=== PATIENT | female | born 1980 | race Two or more races ===

== ENCOUNTER 2017-08-09 13:09 | Emergency (ER) | payer MEDICAID ==
[~2017-08-09] VITALS: Ht 165.1 cm; Wt 68.0 kg
[2017-08-09] MEDS ORDERED: ASPIRIN 325 MG TABLET PO ONE (13:30)
--- NOTE | 2017-08-09 13:30 | NUR ---
PT TOSEEN AND EVALUATED BY ED PROVIDER. ED BED 10. L SIDED CHEST PAIN NON RAIDIATING X 2 DAYS, RESOLVED THIS MORNING, HEADACHE. A/A/O. AMBULATORY. CHANGED TO GOWN. SIDE RAISL UP. HOB ELEVATED. CONNECTED TO MONITOR.
--- NOTE | 2017-08-09 13:38 | NUR ---
EKG AT BEDSIDE. R AC G 20 IV STARTED, BLOOD TESTS DRAWN AND SEND TO LAB.
[2017-08-09] MEDS ORDERED: ASPIRIN 325 MG TABLET ONE (13:39)
[2017-08-09 13:40] LABS: BASOPHILS % (AUTO) 0.3 % (0.0-2.0); EOSINOPHILS % (AUTO) 0.7 % (0.0-6.0); HEMATOCRIT 36 % (33-45); HEMOGLOBIN 12.1 g/dL (11.5-14.8); LYMPHOCYTES # (AUTO) 2.4 /CMM (0.8-4.8); LYMPHOCYTES % (AUTO) 29.1 % (20.0-44.0); MEAN CORPUSCULAR HGB CONC 34 g/dl (31.0-36.0); MEAN CORPUSCULAR VOLUME 78 fL (82-100); MONOCYTES # (AUTO) 0.5 /CMM (0.1-1.30); NEUTROPHILS # (AUTO) 5.2 /CMM (1.8-8.9); NEUTROPHILS % (AUTO) 63.9 % (43.0-81.0); PLATELET COUNT (AUTO) 503 /CMM (150-450); RDW COEFFICIENT OF VARIATION 14.2 (11.5-15.0); RED BLOOD CELL COUNT(AUTO) 4.56 MIL/uL (4.0-5.2); WHITE BLOOD COUNT (AUTO) 8.2 K/uL (4.3-11.0)
[2017-08-09 13:50] LABS: CARBON DIOXIDE 29 mmol/L (21-32); CHLORIDE 102 mmol/L (98-107); CREATININE 0.9 mg/dL (0.6-1.3); GLUCOSE 133 mg/dL (74-106); POTASSIUM 3.5 mmol/L (3.5-5.1); SODIUM SERUM 136 mmol/L (136-145); UREA NITROGEN, BLOOD 16 mg/dL (7-18)
[2017-08-09 13:56] LABS: ALBUMIN 3.8 g/dL (3.4-5.0); BILIRUBIN,TOTAL 0.3 mg/dL (0.2-1.0); TOTAL PROTEIN, SERUM 8.3 g/dL (6.4-8.2)
[2017-08-09 13:58] LABS: INR 0.89 (0.85-1.15); TROPONIN I < 0.017 ng/mL (0.00-0.056)
[2017-08-09] MEDS ORDERED: METOCLOPRAMIDE HCL 10 MG/2 ML VIAL ONE (14:16)
[2017-08-09] MEDS ORDERED: KETOROLAC TROMETHAMINE INJ 30 MG/ML VIAL ONE (14:16)
[2017-08-09] MEDS ORDERED: diphenhydrAMINE HCL 50 MG/ML VIAL ONE (14:16)
[2017-08-09] MEDS ORDERED: KETOROLAC TROMETHAMINE INJ 30 MG/ML VIAL IV ONE (14:30)
[2017-08-09] MEDS ORDERED: IV NS 0.9% 250 ML BAG IV ONE (14:30)
[2017-08-09] MEDS ORDERED: diphenhydrAMINE HCL 50 MG/ML VIAL IV ONE (14:30)
[2017-08-09] MEDS ORDERED: METOCLOPRAMIDE HCL 10 MG/2 ML VIAL IV ONE (14:30)
--- NOTE | 2017-08-09 14:55 | NUR ---
IV removed. Catheter intact and site benign. Pressure and 4x4 applied to site. No bleeding noted.Patient discharged to home in stable condition. Written and verbal after care instructions given. Patient verbalizes understanding of instruction.
[2017-08-09 14:57] VITALS: BP 129/67
== END 2017-08-09 14:58 | disposition home or self-care (01) ==
LOC: ER 13:14
DX: R07.89 Other chest pain (principal); R51 Headache; E11.9 Type 2 diabetes mellitus without complications; K21.9 Gastro-esophageal reflux disease without esophagitis; E03.9 Hypothyroidism, unspecified; E78.00 Pure hypercholesterolemia, unspecified
CPT/HCPCS: 36415; 71045-TC; 80048-TC; 80076-TC; 84484-TC; 85025-TC; 85730-TC; A4606; J1200; J1885; J2765; J7050; Z7610

== ENCOUNTER 2017-09-01 11:06 | Inpatient (IN) | payer MEDICAID ==
[~2017-09-01] VITALS: Ht 154.9 cm; Wt 72.6 kg
--- NOTE | 2017-09-01 11:27 | NUR ---
PT C/O LEFT SIDED CHEST PAIN X YESTERDAY RADIATING TO LEFT ARM. NAD NOTED. VSS. DENIES TRAUMA. SEEN BY MD FOR EVAL. SAFETY AND COMFORT MEASURES PROVIDED. WILL MONITOR.
[2017-09-01 11:38] LABS: BASOPHILS # (AUTO) 0.1 /CMM (0.0-0.2); BASOPHILS % (AUTO) 0.6 % (0.0-2.0); EOSINOPHILS % (AUTO) 0.8 % (0.0-6.0); HEMATOCRIT 34 % (33-45); HEMOGLOBIN 11.8 g/dL (11.5-14.8); LYMPHOCYTES # (AUTO) 2.5 /CMM (0.8-4.8); LYMPHOCYTES % (AUTO) 27.7 % (20.0-44.0); MEAN CORPUSCULAR HGB CONC 34 g/dl (31.0-36.0); MEAN CORPUSCULAR VOLUME 77 fL (82-100); MONOCYTES # (AUTO) 0.7 /CMM (0.1-1.30); MONOCYTES % (AUTO) 7.3 % (2.0-12.0); NEUTROPHILS # (AUTO) 5.6 /CMM (1.8-8.9); NEUTROPHILS % (AUTO) 63.6 % (43.0-81.0); PLATELET COUNT (AUTO) 427 /CMM (150-450); RDW COEFFICIENT OF VARIATION 14.2 (11.5-15.0); RED BLOOD CELL COUNT(AUTO) 4.43 MIL/uL (4.0-5.2)
[2017-09-01] MEDS ORDERED: METF-442 PO (11:47)
[2017-09-01] MEDS ORDERED: FENO134C PO (11:47)
[2017-09-01] MEDS ORDERED: LEVO50TA8 PO (11:47)
[2017-09-01 11:48] LABS: CALCIUM, SERUM 8.9 mg/dL (8.5-10.1); CARBON DIOXIDE 26 mmol/L (21-32); CHLORIDE 104 mmol/L (98-107); CREATININE 0.8 mg/dL (0.6-1.3); GLUCOSE 130 mg/dL (74-106); POTASSIUM 3.4 mmol/L (3.5-5.1); SODIUM SERUM 137 mmol/L (136-145); UREA NITROGEN, BLOOD 15 mg/dL (7-18)
[2017-09-01 11:52] LABS: INR 0.91 (0.85-1.15)
[2017-09-01 11:57] LABS: TROPONIN I < 0.017 ng/mL (0.00-0.056)
[2017-09-01] MEDS ORDERED: INSULIN REGULAR, HUMAN 100 UNIT/ML 3 ML VIAL SQ PRN (13:00)
[2017-09-01] MEDS ORDERED: MAGNESIUM HYDROXIDE 30 ML UDC PO PRN (13:00)
[2017-09-01] MEDS ORDERED: DEXTROSE 50%-WATER 50 ML DISP.SYRIN IV PRN (13:00)
[2017-09-01] MEDS ORDERED: NITROGLYCERIN PACKET 1 GM PACKET TOP SCH (13:00)
[2017-09-01] MEDS ORDERED: ONDANSETRON HCL/PF 4 MG/2 ML VIAL IVP PRN (13:00)
[2017-09-01] MEDS ORDERED: MAG HYDROX/AL HYDROX/SIMETH 30 ML UDC PO PRN (13:00)
[2017-09-01] MEDS ORDERED: Z GUARD REMEDY 2 OZ OINT TP PRN (13:00)
[2017-09-01] MEDS ORDERED: *INSULIN REGULAR(HUMULIN R)HUM 100 UNIT/ML VIAL SQ PRN (13:00)
[2017-09-01] MEDS ORDERED: ENOXAPARIN SODIUM 40 MG/0.4 ML DISP.SYRIN SQ SCH (13:00)
[2017-09-01] MEDS ORDERED: ZOLPIDEM TARTRATE 5 MG TABLET PO PRN (13:00)
[2017-09-01] MEDS ORDERED: ACETAMINOPHEN 325 MG TABLET PO PRN (13:00)
[2017-09-01] MEDS ORDERED: MORPHINE SULFATE INJ 2 MG/ML DISP.SYRIN IV PRN (13:00)
[2017-09-01] MEDS ORDERED: HYDROCODONE/APAP 5/325MG 1 EACH TABLET PO PRN (13:00)
--- NOTE | 2017-09-01 13:00 | NUR ---
MS NEUROLOGICAL SURGERY TEACHER NOTE RECEIVED REPORT FROM MELANY FINE RN. PATIENT IS ALERT AND ORIENTED x4. PATIENT CAME FROM HOME DUE TO SHARP CHEST PAIN RADIATING TO LEFT ARM. PATIENT STATES 2/10 CHEST PAIN AT THIS TIME. HISTORY OF HTN, DM TYPE 2, GERD, HLD, AND HYPOTHYROIDISM. MED RECON DONE BY ADMITTING MD. NO SKIN ISSUES AT THIS TIME, SKIN INTACT. ALL BELONGINGS ACCOUNTED FOR AND WITH PATIENT AT BEDSIDE. ABLE TO COMMUNICATE NEEDS. KYRGYZ SPEAKING. IV ON LEFT AC 20G INTACT AND PATENT, FLUSHES WELL. ALL MD ORDERS NOTED AND CARRIED OUT. WILL CONTINUE TO MONITOR FOR CHEST PAIN AND CONTINUITY OF CARE. Addendum: 09/01/[address]ZMAN RN CHEMICAL LAB SUPERVISORNEUROLOGICAL SURGERY TEACHER NOTE TELE MONITOR-SR 70S
[2017-09-01] MEDS ORDERED: ATORVASTATIN 10 MG TABLET PO SCH (14:30)
[2017-09-01 14:40] VITALS: BP 123/80
--- NOTE | 2017-09-01 14:44 | NUR ---
MS AYERS NOTE RECEIVED MD ORDER FROM TO REPLACE POTASSIUM WITH 40 MEQ PO x1. ORDERS NOTED AND CARRIED OUT. Addendum: 09/01/[address]ZMAN RN JARROD ADAMES
[2017-09-01] MEDS: ASPIRIN 81 MG TAB.CHEW PO SCH (14:58)
[2017-09-01] MEDS: Fenofibrate 48 MG TABLET PO SCH (14:58)
[2017-09-01] MEDS ORDERED: POTASSIUM CHLORIDE 20 MEQ TAB.PRT.SR PO ONE (15:00)
[2017-09-01] MEDS: CARVEDILOL 6.25 MG TABLET PO SCH ×2 (15:00→21:00)
[2017-09-01] MEDS: LOSARTAN POTASSIUM 50 MG TABLET PO SCH (15:01)
--- NOTE | 2017-09-01 15:15 | NUR ---
EMT DISPATCHER NOTE PATIENT SCHEDULED FOR NUCLEAR MEDICINE MYOCARDIAL STRESS TEST 09/02/17. CONSENTS OBTAINED AND PLACED IN CHART. PATIENT MADE AWARE ABOUT BEING NPO AFTER MIDNIGHT, NO FOOD/WATER/COFFEE/TEA. PATIENT VERBALLY UNDERSTANDS. WILL ENDORSE TO FOUNTAIN SUPERVISOR
[2017-09-01 15:48] LABS: THYROID STIMULATING HORMONE 0.076 uIU/mL (0.358-3.74)
[2017-09-01 16:00] VITALS: BP 110/70
[2017-09-01] MEDS: BLOOD SUGAR DIAGNOSTIC 1 EACH STRIP VI SCH ×2 (17:10→21:30)
--- NOTE | 2017-09-01 18:39 | NUR ---
TREE PRUNER CLOSING NOTE PATIENT IN BED RESTING COMFORTABLY AT THIS TIME. ABLE TO COMMUNICATE NEEDS. CALL LIGHT WITHIN REACH AT ALL TIMES. SAFETY MEASURES IMPLEMENTED. NO PAIN NOTED AT THIS TIME. NO SOB OR DISTRESS NOTED WITH 99% O2 SAT ON ROOM AIR. ON TELE MONITOR- SR 71. CONSENTS OBTAINED FOR NM STRESS TEST 09/02/17 AND PLACED IN CHART. NPO AFTER MIDNIGHT. ALL DUE MEDICATIONS GIVEN ORDERED. ALL NURSING CARE NEEDS ATTENDED TO NEEDED. WILL ENDORSE TO MOBILE SALES ASSISTANT NURSE FOR LINDSAY
--- NOTE | 2017-09-01 19:40 | NUR ---
FACULTY ADMINISTRATOR OPENING NOTES RECEIVED PATIENT AWAKE ,ALERT AND ORIENTED X4 , VERBALLY RESPONSIVE, BREATHING EVEN AND UNLABORED WITH EQUAL RISE AND FALL OF CHEST, C/O HEADACHE 06/07 AT THIS TIME TYLENOL OFFERED AGREED TO TAKE, PRN DOSE GIVEN WILL CONTINUE TO MONITOR, ON MARINE PILOT SR 75.IV SITE TO LEFT AC SL , INTACT AND PATENT, NO REDNESS , NO INFILTRATION PRESENT, FLUIDS OFFERED TOLERATED , ALL NEEDS ATTENDED AT THIS TIME, ORIENTED TO STAFF, CALL LIGHT AND CALL LIGHT KEPT WITHIN REACH, WILL CONTINUE TO MONITOR AT THIS TIME, PATIENT AWARE OF NPO STATUS AT MIDNIGHT FOR AM PROCEDURE.REMAINS COMFORTABLE AT THIS TIME.
[2017-09-01 20:00] VITALS: BP 102/64
--- NOTE | 2017-09-01 21:36 | NUR ---
SUPERVISOR QUALITY CONTROL NOTES BS 125 - PER SLIDING SCALE NO INSULIN NEEDED, NONE GIVEN
[2017-09-02] VITALS: BP 100/65
[2017-09-02 04:00] VITALS: BP 100/64
[2017-09-02 05:00] VITALS: BP 100/64
[2017-09-02 06:33] LABS: BASOPHILS % (AUTO) 0.4 % (0.0-2.0); EOSINOPHILS % (AUTO) 0.7 % (0.0-6.0); HEMATOCRIT 32 % (33-45); HEMOGLOBIN 10.8 g/dL (11.5-14.8); LYMPHOCYTES # (AUTO) 2.1 /CMM (0.8-4.8); MEAN CORPUSCULAR HGB CONC 34 g/dl (31.0-36.0); MEAN CORPUSCULAR VOLUME 78 fL (82-100); MONOCYTES # (AUTO) 0.6 /CMM (0.1-1.30); MONOCYTES % (AUTO) 8.6 % (2.0-12.0); NEUTROPHILS # (AUTO) 3.9 /CMM (1.8-8.9); NEUTROPHILS % (AUTO) 58.3 % (43.0-81.0); PLATELET COUNT (AUTO) 406 /CMM (150-450); RDW COEFFICIENT OF VARIATION 15.5 (11.5-15.0); RED BLOOD CELL COUNT(AUTO) 4.12 MIL/uL (4.0-5.2); WHITE BLOOD COUNT (AUTO) 6.6 K/uL (4.3-11.0)
[2017-09-02] MEDS: BLOOD SUGAR DIAGNOSTIC 1 EACH STRIP VI SCH ×2 (06:41→12:30)
--- NOTE | 2017-09-02 07:17 | NUR ---
SUPPLY PERSON CLOSING NOTES PATIENT AWAKE ,ALERT AND ORIENTED X4 , VERBALLY RESPONSIVE, BREATHING EVEN AND UNLABORED WITH EQUAL RISE AND FALL OF CHEST, ON GUTTER HANGER SR 68.IV SITE TO LEFT AC SL , INTACT AND PATENT, NO REDNESS , NO INFILTRATION PRESENT, ALL NEEDS ATTENDED AT THIS TIME, STAFF, CALL CALL LIGHT KEPT WITHIN REACH, WILL CONTINUE TO MONITOR AT THIS TIME, PATIENT AWARE OF NPO STATUS AT MIDNIGHT FOR AM PROCEDURE.REMAINS COMFORTABLE AT THIS TIME.BLOOD SUGAR OF 128 , NO INSULIN PER SLIDING SCALE NEEDED AT THIS TIME. WILL ENDORSE TO NEXT SHIFT PATIENT REMAINS COMFORTABLE.
[2017-09-02 07:19] LABS: CALCIUM, SERUM 8.8 mg/dL (8.5-10.1); CREATININE 0.8 mg/dL (0.6-1.3); MAGNESIUM 1.9 mg/dL (1.8-2.4); PHOSPHORUS 4.1 mg/dL (2.5-4.9); POTASSIUM 3.8 mmol/L (3.5-5.1)
[2017-09-02] MEDS ORDERED: LEVOTHYROXINE SODIUM 50 MCG TABLET PO SCH (07:30)
[2017-09-02] MEDS ORDERED: PANTOPRAZOLE 40 MG TABLET.DR PO SCH (07:30)
[2017-09-02 08:00] VITALS: BP 113/68
[2017-09-02] MEDS ORDERED: REGADENOSON 0.4 MG/5 ML DISP.SYRIN IVP ONE (08:00)
--- NOTE | 2017-09-02 08:00 | NUR ---
MS RN RECEIVED PATIENT,AWAKE,ALERT,ORIENTED X4,NOT IN ANY FORM OF DISTRESS, RESPIRATIONS EVEN AND UNLABORED,NO SOB NOTED, LUNGS ARE CLEAR,ABDOMEN SOFT,POSITIVE BOWEL SOUNDS,DENIES PAIN AT THIS TIME, ALL NEEDS ATTENDED.
[2017-09-02] MEDS ORDERED: ENOXAPARIN SODIUM 40 MG/0.4 ML DISP.SYRIN SQ SCH (09:00)
--- NOTE | 2017-09-02 09:30 | NUR ---
RN NPO AT THIS TIME, PATIENT FOR STRESS TEST TODAY.
[2017-09-02] MEDS: LOSARTAN POTASSIUM 50 MG TABLET PO SCH (10:01)
[2017-09-02] MEDS: ASPIRIN 81 MG TAB.CHEW PO SCH (10:01)
[2017-09-02] MEDS: Fenofibrate 48 MG TABLET PO SCH (10:01)
[2017-09-02 10:02] VITALS: BP 115/68
[2017-09-02] MEDS: CARVEDILOL 6.25 MG TABLET PO SCH (10:02)
--- NOTE | 2017-09-02 12:00 | NUR ---
MS ARMEN BS -[id number] - NO COVERAGE GIVEN, PT NPO.
[2017-09-02] MEDS ORDERED: MORPHINE SULFATE INJ 4 MG/ML DISP.SYRIN IV PRN (13:00)
--- NOTE | 2017-09-02 13:50 | NUR ---
MS RN STRESS TEST DONE W/ NEGATIVE RESULTS,WILL MONITOR PATIENT.
--- NOTE | 2017-09-02 15:30 | NUR ---
MS RN PATIENT WILL BE GOING HOME TODAY, VIA TAXI.
--- NOTE | 2017-09-02 16:52 | NUR ---
MS FAST FOOD RESTAURANT MANAGER INSTRUCTION GIVEN AND UNDERSTOOD TO HAVE A FOLLOW UP W/ PRIMARY IN ONE WEKK. WENT HOME VIA TAXI.ALL NEEDS ATTENDED.
== END 2017-09-02 16:57 | disposition home or self-care (01) | DRG 203 ==
LOC: ER 11:09 → TELE 12:27 → MED 09-02 09:35
PROVIDERS: ADMIT Internal Medicine; ATTEND Internal Medicine
DX: M94.0 Chondrocostal junction syndrome [Tietze] (principal); I10 Essential (primary) hypertension; E03.9 Hypothyroidism, unspecified; E11.9 Type 2 diabetes mellitus without complications; D50.9 Iron deficiency anemia, unspecified; E78.5 Hyperlipidemia, unspecified; K21.9 Gastro-esophageal reflux disease without esophagitis; E66.9 Obesity, unspecified; Z68.30 Body mass index [BMI] 30.0-30.9, adult; Z79.84 Long term (current) use of oral hypoglycemic drugs
CPT/HCPCS: 36415; 71045-TC; 80048-TC; 80061-TC; 82306; 82728-TC; 82962-TC; 83540-TC; 83735-TC; 84100-TC; 84439-TC; 84443-TC; 84484-TC; 84703-TC; 85025-TC; 85730-TC; 87081-TC; 93307-TC; A4606; A6253; A9502; J1650; J1815; J2785; J7040; Z7610

== ENCOUNTER 2018-01-13 13:07 | Emergency (ER) | payer MEDICAID ==
[~2018-01-13] VITALS: Ht 165.1 cm; Wt 90.0 kg
[~2018-01-13 13:07] MED LIST: FENO134C PO; LEVO50TA8 PO; METF-442 PO
[2018-01-13 14:30] LABS: BASOPHILS % (AUTO) 0.4 % (0.0-2.0); EOSINOPHILS % (AUTO) 1.4 % (0.0-6.0); HEMATOCRIT 38 % (33-45); HEMOGLOBIN 12.4 g/dL (11.5-14.8); LYMPHOCYTES # (AUTO) 2.5 /CMM (0.8-4.8); LYMPHOCYTES % (AUTO) 31.5 % (20.0-44.0); MEAN CORPUSCULAR HGB CONC 33 g/dl (31.0-36.0); MEAN CORPUSCULAR VOLUME 79 fL (82-100); MONOCYTES # (AUTO) 0.7 /CMM (0.1-1.30); MONOCYTES % (AUTO) 9.1 % (2.0-12.0); NEUTROPHILS # (AUTO) 4.7 /CMM (1.8-8.9); NEUTROPHILS % (AUTO) 57.6 % (43.0-81.0); PLATELET COUNT (AUTO) 458 /CMM (150-450); RED BLOOD CELL COUNT(AUTO) 4.76 MIL/uL (4.0-5.2)
[2018-01-13 14:39] LABS: CALCIUM, SERUM 8.9 mg/dL (8.5-10.1); CREATININE 0.8 mg/dL (0.6-1.3); POTASSIUM 3.4 mmol/L (3.5-5.1)
--- NOTE | 2018-01-13 15:45 | NUR ---
PT. VERBALIZED UNDERSTANDING OF AFTERCARE INSTRUCTIONS.Patient discharged to home in stable condition. Written and verbal after care instructions given. Patient verbalizes understanding of instruction.
[2018-01-13 15:46] VITALS: BP 151/81
== END 2018-01-13 15:47 | disposition home or self-care (01) ==
LOC: ER 13:11
DX: M54.41 Lumbago with sciatica, right side (principal); M54.6 Pain in thoracic spine; K21.9 Gastro-esophageal reflux disease without esophagitis; I10 Essential (primary) hypertension; E11.9 Type 2 diabetes mellitus without complications; E03.9 Hypothyroidism, unspecified; E78.00 Pure hypercholesterolemia, unspecified
CPT/HCPCS: 36415; 71045; 80048; 85025; 93005; 99285; A4606; Z7610

== ENCOUNTER 2018-04-27 12:59 | Emergency (ER) | payer MEDICAID ==
[~2018-04-27] VITALS: Ht 157.5 cm; Wt 86.2 kg
--- NOTE | 2018-04-27 13:10 | NUR ---
LUQ abd pain x 2 weeks with nausea, denies vomiting . alert and oriented x 4, verbally responsive nad able to make needs known. on room air, breathing evenly and unlabored. connected to the monitor and pulse ox, kept comfortable, will continue to monitor accordingly.
--- NOTE | 2018-04-27 13:22 | NUR ---
URINE COLLECTED AND BLOOD DRAWNED AND SENT TO LAB.
[2018-04-27] MEDS ORDERED: ONDANSETRON HCL/PF 4 MG/2 ML VIAL IVP ONE (13:30)
[2018-04-27] MEDS ORDERED: HYDROMORPHONE INJ 2 MG/ML DISP.SYRIN IV ONE (13:30)
[2018-04-27] MEDS ORDERED: IV NS 0.9% 1,000 ML BAG IV ONE (13:30)
[2018-04-27] MEDS ORDERED: ONDANSETRON HCL/PF 4 MG/2 ML VIAL ONE (13:32)
[2018-04-27] MEDS ORDERED: HYDROMORPHONE INJ 0.5 MG/0.5 ML SYRINGE ONE (13:32)
[2018-04-27 13:33] LABS: BASOPHILS # (AUTO) 0.1 /CMM (0.0-0.2); BASOPHILS % (AUTO) 0.8 % (0.0-2.0); EOSINOPHILS % (AUTO) 1.2 % (0.0-6.0); HEMATOCRIT 36 % (33-45); HEMOGLOBIN 11.8 g/dL (11.5-14.8); LYMPHOCYTES % (AUTO) 32.6 % (20.0-44.0); MEAN CORPUSCULAR HGB CONC 33 g/dl (31.0-36.0); MEAN CORPUSCULAR VOLUME 83 fL (82-100); MONOCYTES # (AUTO) 0.6 /CMM (0.1-1.30); MONOCYTES % (AUTO) 9.5 % (2.0-12.0); NEUTROPHILS # (AUTO) 3.5 /CMM (1.8-8.9); NEUTROPHILS % (AUTO) 55.9 % (43.0-81.0); PLATELET COUNT (AUTO) 382 /CMM (150-450); WHITE BLOOD COUNT (AUTO) 6.2 K/uL (4.3-11.0)
[2018-04-27 13:34] LABS: APPEARANCE,URINE Slightly Cloudy (CLEAR); BILIRUBIN,URINE Negative (NEGATIVE); BLOOD, URINE Negative Ery/uL (NEGATIVE); COLOR,URINE Dark Yellow (YELLOW); KETONES,URINE Trace (NEGATIVE); LEUKOCYTE ESTERASE ,URINE Small (NEGATIVE); NITRITE, URINE Negative (NEGATIVE); PH,URINE 5.5 (5.0-8.0); PROTEIN,URINE Negative (NEGATIVE); UGLUCOSE Negative (NEGATIVE); UROBILINOGEN,URINE 0.2 EU/dL (0.2)
[2018-04-27 13:38] LABS: BACTERIA,URINE Few /HPF (None Seen); RBC,URINE 0-2 /HPF (0-2); SQUAMOUS EPITHELIAL CELL,UR Many /HPF (None Seen)
[2018-04-27 13:52] LABS: CREATININE 0.8 mg/dL (0.6-1.3); POTASSIUM 3.7 mmol/L (3.5-5.1)
[2018-04-27 13:57] LABS: ALBUMIN 3.5 g/dL (3.4-5.0); BILIRUBIN,DIRECT 0.1 mg/dL (0.0-0.2); BILIRUBIN,TOTAL 0.3 mg/dL (0.2-1.0); TOTAL PROTEIN, SERUM 8.5 g/dL (6.4-8.2)
[2018-04-27 15:41] VITALS: BP 121/88
--- NOTE | 2018-04-27 15:41 | NUR ---
Patient discharged to home in stable condition. Written and verbal after care instructions given. Patient verbalizes understanding of instruction.IV removed. Catheter intact and site benign. Pressure and 4x4 applied to site. No bleeding noted.
== END 2018-04-27 15:41 | disposition home or self-care (01) ==
LOC: ER 13:03
DX: N39.0 Urinary tract infection, site not specified (principal); R74.0 Nonspecific elevation of levels of transaminase and lactic acid dehydrogenase [LDH]; R16.0 Hepatomegaly, not elsewhere classified; E03.9 Hypothyroidism, unspecified; E11.9 Type 2 diabetes mellitus without complications; I10 Essential (primary) hypertension; K21.0 Gastro-esophageal reflux disease with esophagitis; E78.00 Pure hypercholesterolemia, unspecified; Z79.4 Long term (current) use of insulin
CPT/HCPCS: 36415; 76705; 80048; 80076; 81001; 83690; 84703; 85025; 96374; 96375; 99284; A4606; J2405; J7030; Z7610; 81000-TC

== ENCOUNTER 2018-05-29 21:13 | Emergency (ER) | payer MEDICAID ==
[~2018-05-29] VITALS: Ht 152.4 cm; Wt 85.3 kg
--- NOTE | 2018-05-29 21:25 | NUR ---
BIB FAMILY FOR ABD PAIN, BACK PAIN; PT AAOX4, PT ON MONITOR, VSS, NAD NOTED, PENDING MD MO
[2018-05-29] MEDS ORDERED: ONDANSETRON HCL/PF 4 MG/2 ML VIAL IVP ONE (22:00)
[2018-05-29] MEDS ORDERED: KETOROLAC TROMETHAMINE INJ 30 MG/ML VIAL IV ONE (22:00)
[2018-05-29] MEDS ORDERED: IV NS 0.9% 1,000 ML BAG IV ONE (22:00)
[2018-05-29] MEDS ORDERED: KETOROLAC TROMETHAMINE 15 MG/ML VIAL ONE (22:16)
[2018-05-29] MEDS ORDERED: ONDANSETRON HCL/PF 4 MG/2 ML VIAL ONE ×2 (22:16→23:16)
[2018-05-29 22:17] LABS: BASOPHILS % (AUTO) 0.5 % (0.0-2.0); EOSINOPHILS % (AUTO) 0.9 % (0.0-6.0); HEMATOCRIT 35 % (33-45); HEMOGLOBIN 11.6 g/dL (11.5-14.8); LYMPHOCYTES # (AUTO) 2.1 /CMM (0.8-4.8); LYMPHOCYTES % (AUTO) 26.7 % (20.0-44.0); MEAN CORPUSCULAR HGB CONC 33 g/dl (31.0-36.0); MEAN CORPUSCULAR VOLUME 81 fL (82-100); MONOCYTES # (AUTO) 0.8 /CMM (0.1-1.30); MONOCYTES % (AUTO) 9.9 % (2.0-12.0); NEUTROPHILS # (AUTO) 4.8 /CMM (1.8-8.9); PLATELET COUNT (AUTO) 355 /CMM (150-450); RED BLOOD CELL COUNT(AUTO) 4.33 MIL/uL (4.0-5.2); WHITE BLOOD COUNT (AUTO) 7.7 K/uL (4.3-11.0)
[2018-05-29 22:17] LABS: APPEARANCE,URINE CLEAR (CLEAR); BILIRUBIN,URINE NEGATIVE (NEGATIVE); BLOOD, URINE NEGATIVE Ery/uL (NEGATIVE); COLOR,URINE YELLOW (YELLOW); KETONES,URINE NEGATIVE (NEGATIVE); LEUKOCYTE ESTERASE ,URINE 2+ (NEGATIVE); NITRITE, URINE NEGATIVE (NEGATIVE); PROTEIN,URINE NEGATIVE (NEGATIVE); UGLUCOSE NEGATIVE (NEGATIVE); UROBILINOGEN,URINE 0.2 EU/dL (0.2)
[2018-05-29 22:27] LABS: BACTERIA,URINE Few /HPF (None Seen); RBC,URINE 0-2 /HPF (0-2); SQUAMOUS EPITHELIAL CELL,UR Moderate /HPF (None Seen)
[2018-05-29 22:30] LABS: CALCIUM, SERUM 9.2 mg/dL (8.5-10.1); CREATININE 0.8 mg/dL (0.6-1.3); POTASSIUM 3.7 mmol/L (3.5-5.1)
[2018-05-29 22:38] LABS: ALBUMIN 3.4 g/dL (3.4-5.0); BILIRUBIN,DIRECT 0.1 mg/dL (0.0-0.2); BILIRUBIN,TOTAL 0.3 mg/dL (0.2-1.0); TOTAL PROTEIN, SERUM 8.3 g/dL (6.4-8.2)
[2018-05-29] MEDS ORDERED: MORPHINE SULFATE INJ 2 MG/ML DISP.SYRIN IV ONE (23:00)
[2018-05-29] MEDS ORDERED: ONDANSETRON HCL/PF 4 MG/2 ML VIAL IV ONE (23:00)
[2018-05-29] MEDS ORDERED: MORPHINE SULFATE INJ 2 MG/ML DISP.SYRIN ONE (23:16)
[2018-05-30 00:25] VITALS: BP 117/72
--- NOTE | 2018-05-30 00:25 | NUR ---
Patient discharged to home in stable condition. Written and verbal after care instructions given. Patient verbalizes understanding of instruction.IV removed. Catheter intact and site benign. Pressure and 4x4 applied to site. No bleeding noted. PT AMBULATED OUT WITH STEADY GAIT NOTED
== END 2018-05-30 00:26 | disposition home or self-care (01) ==
LOC: ER 21:16
DX: R74.0 Nonspecific elevation of levels of transaminase and lactic acid dehydrogenase [LDH] (principal); E11.9 Type 2 diabetes mellitus without complications; I10 Essential (primary) hypertension; K21.9 Gastro-esophageal reflux disease without esophagitis; E03.9 Hypothyroidism, unspecified; E78.00 Pure hypercholesterolemia, unspecified
CPT/HCPCS: 36415; 74176; 76705; 80048; 80074; 80076; 81001; 83690; 84703; 85025; 85730; 87086; 96374; 96375; 96376; 99284; A4606; G0480; J1885; J2270; J2405 ×2; J7030; 81000-TC

== ENCOUNTER 2018-07-21 18:22 | Emergency (ER) | payer MEDICAID ==
[~2018-07-21] VITALS: Ht 162.6 cm; Wt 83.5 kg
--- NOTE | 2018-07-21 18:33 | NUR ---
PT BIB SELF C/O EPIGASTRIC PAIN, DISTENSION W/ NAUSEA X 2 DAYS. PT ALSO ENDORSES BACK PAIN, PT IS AAOX4, NOT IN RESPIRATORY DISTRESS, V/S STABLE, KEPT RESTED AND COMFORTABLE. WILL CONTINUE TO MONITOR.
[2018-07-21] MEDS ORDERED: ONDANSETRON HCL/PF 4 MG/2 ML VIAL IVP ONE (19:00)
[2018-07-21] MEDS ORDERED: IV NS 0.9% 1,000 ML BAG IV ONE (19:00)
[2018-07-21] MEDS ORDERED: MORPHINE SULFATE INJ 2 MG/ML DISP.SYRIN IV ONE (19:00)
--- NOTE | 2018-07-21 19:00 | NUR ---
IV LINE ESTABLISHED, LABS DRAWNED AND SENT TO LAB.
--- NOTE | 2018-07-21 19:10 | NUR ---
TECH AT BEDSIDE FOR US.
[2018-07-21 19:13] LABS: BASOPHILS # (AUTO) 0.1 /CMM (0.0-0.2); BASOPHILS % (AUTO) 0.6 % (0.0-2.0); EOSINOPHILS % (AUTO) 0.4 % (0.0-6.0); HEMATOCRIT 33 % (33-45); HEMOGLOBIN 11.1 g/dL (11.5-14.8); LYMPHOCYTES # (AUTO) 2.6 /CMM (0.8-4.8); LYMPHOCYTES % (AUTO) 28.7 % (20.0-44.0); MEAN CORPUSCULAR HGB CONC 33 g/dl (31.0-36.0); MEAN CORPUSCULAR VOLUME 81 fL (82-100); MONOCYTES # (AUTO) 0.8 /CMM (0.1-1.30); MONOCYTES % (AUTO) 8.5 % (2.0-12.0); NEUTROPHILS # (AUTO) 5.6 /CMM (1.8-8.9); NEUTROPHILS % (AUTO) 61.8 % (43.0-81.0); PLATELET COUNT (AUTO) 373 /CMM (150-450); RED BLOOD CELL COUNT(AUTO) 4.13 MIL/uL (4.0-5.2); WHITE BLOOD COUNT (AUTO) 9.1 K/uL (4.3-11.0)
[2018-07-21 19:14] LABS: APPEARANCE,URINE Clear (CLEAR); BILIRUBIN,URINE Negative (NEGATIVE); BLOOD, URINE Negative Ery/uL (NEGATIVE); COLOR,URINE Yellow (YELLOW); KETONES,URINE Negative (NEGATIVE); LEUKOCYTE ESTERASE ,URINE Small (NEGATIVE); NITRITE, URINE Negative (NEGATIVE); PH,URINE 7.5 (5.0-8.0); PROTEIN,URINE Negative (NEGATIVE); UGLUCOSE Negative (NEGATIVE); UROBILINOGEN,URINE 0.2 EU/dL (0.2)
[2018-07-21 19:20] LABS: CALCIUM, SERUM 8.7 mg/dL (8.5-10.1); CREATININE 0.6 mg/dL (0.6-1.3); POTASSIUM 3.6 mmol/L (3.5-5.1)
[2018-07-21] MEDS ORDERED: ONDANSETRON HCL/PF 4 MG/2 ML VIAL ONE (19:20)
[2018-07-21] MEDS ORDERED: MORPHINE SULFATE INJ 4 MG/ML DISP.SYRIN ONE (19:21)
[2018-07-21 19:26] LABS: ALBUMIN 3.4 g/dL (3.4-5.0); BILIRUBIN,DIRECT 0.1 mg/dL (0.0-0.2); BILIRUBIN,TOTAL 0.2 mg/dL (0.2-1.0); TOTAL PROTEIN, SERUM 8.1 g/dL (6.4-8.2)
[2018-07-21 19:28] LABS: BACTERIA,URINE Few /HPF (None Seen); RBC,URINE 0-2 /HPF (0-2); SQUAMOUS EPITHELIAL CELL,UR Few /HPF (None Seen)
--- NOTE | 2018-07-21 19:34 | NUR ---
REPORT GIVEN TO ARMEN ESTRADA FOR LINDSAY.
--- NOTE | 2018-07-21 20:05 | NUR ---
Patient discharged to home in stable condition. Written and verbal after care instructions given. Patient verbalizes understanding of instruction. Pt ambulatory with a steady gait. IV removed. Catheter intact and site benign. Pressure and 4x4 applied to site. No bleeding noted.
[2018-07-21 20:12] VITALS: BP 127/81
== END 2018-07-21 20:13 | disposition home or self-care (01) ==
LOC: ER 18:22
DX: R10.13 Epigastric pain (principal); R10.11 Right upper quadrant pain; E11.9 Type 2 diabetes mellitus without complications; I10 Essential (primary) hypertension; K21.9 Gastro-esophageal reflux disease without esophagitis; E03.9 Hypothyroidism, unspecified; E78.00 Pure hypercholesterolemia, unspecified; Z79.899 Other long term (current) drug therapy; Z79.84 Long term (current) use of oral hypoglycemic drugs
CPT/HCPCS: 36415; 76705; 80048; 80076; 81001; 84703; 85025; 96361; 96374; 96375; 99284; J2270; J2405; 81000-TC; J7030

== ENCOUNTER 2018-09-14 09:09 | Emergency (ER) | payer MEDICAID ==
[~2018-09-14] VITALS: Ht 162.6 cm; Wt 83.9 kg
--- NOTE | 2018-09-14 09:30 | NUR ---
CAME IN FOR RLQ ABDOMINAL PAIN X 2 DAYS. -N/V/D. TO ER BED 11, HOOKED TO MONITOR, CHANGED TO GOWN, PROVIDED W WARM BLANKET, AWAITING MD MO.
--- NOTE | 2018-09-14 09:56 | NUR ---
URINE SAMPLE SENT TO LAB
--- NOTE | 2018-09-14 10:00 | NUR ---
DR RANDHAWA AT BEDSIDE
[2018-09-14 10:10] LABS: BASOPHILS % (AUTO) 0.6 % (0.0-2.0); EOSINOPHILS % (AUTO) 0.4 % (0.0-6.0); HEMATOCRIT 33 % (33-45); HEMOGLOBIN 11.1 g/dL (11.5-14.8); LYMPHOCYTES # (AUTO) 2.4 /CMM (0.8-4.8); LYMPHOCYTES % (AUTO) 28.1 % (20.0-44.0); MEAN CORPUSCULAR HGB CONC 33 g/dl (31.0-36.0); MEAN CORPUSCULAR VOLUME 81 fL (82-100); MONOCYTES # (AUTO) 0.6 /CMM (0.1-1.30); MONOCYTES % (AUTO) 7.2 % (2.0-12.0); NEUTROPHILS # (AUTO) 5.5 /CMM (1.8-8.9); NEUTROPHILS % (AUTO) 63.7 % (43.0-81.0); PLATELET COUNT (AUTO) 410 /CMM (150-450); RED BLOOD CELL COUNT(AUTO) 4.12 MIL/uL (4.0-5.2); WHITE BLOOD COUNT (AUTO) 8.7 K/uL (4.3-11.0)
[2018-09-14 10:12] VITALS: BP 112/66
[2018-09-14 10:16] LABS: APPEARANCE,URINE Clear (CLEAR); BILIRUBIN,URINE Negative (NEGATIVE); BLOOD, URINE Negative Ery/uL (NEGATIVE); COLOR,URINE Yellow (YELLOW); KETONES,URINE Negative (NEGATIVE); LEUKOCYTE ESTERASE ,URINE Trace (NEGATIVE); NITRITE, URINE Negative (NEGATIVE); PH,URINE 6.5 (5.0-8.0); PROTEIN,URINE Negative (NEGATIVE); UGLUCOSE Negative (NEGATIVE); UROBILINOGEN,URINE 0.2 EU/dL (0.2)
[2018-09-14 10:18] LABS: BACTERIA,URINE Few /HPF (None Seen); RBC,URINE 0-2 /HPF (0-2); SQUAMOUS EPITHELIAL CELL,UR Few /HPF (None Seen); WBC,URINE 0-2 /HPF (0-3)
[2018-09-14 10:18] LABS: CREATININE 0.8 mg/dL (0.6-1.3); POTASSIUM 3.3 mmol/L (3.5-5.1)
[2018-09-14 10:24] LABS: ALBUMIN 3.4 g/dL (3.4-5.0); BILIRUBIN,DIRECT 0.1 mg/dL (0.0-0.2); BILIRUBIN,TOTAL 0.3 mg/dL (0.2-1.0); CALCIUM, SERUM 8.7 mg/dL (8.5-10.1); TOTAL PROTEIN, SERUM 8.3 g/dL (6.4-8.2)
== END 2018-09-14 11:35 | disposition home or self-care (01) ==
LOC: ER 09:09
DX: R10.31 Right lower quadrant pain (principal); R14.0 Abdominal distension (gaseous); I10 Essential (primary) hypertension; K21.9 Gastro-esophageal reflux disease without esophagitis; E11.9 Type 2 diabetes mellitus without complications; E03.9 Hypothyroidism, unspecified; E78.00 Pure hypercholesterolemia, unspecified; Z79.899 Other long term (current) drug therapy; Z79.84 Long term (current) use of oral hypoglycemic drugs
CPT/HCPCS: 36415; 80048-TC; 80076-TC; 81000-TC; 83690-TC; 84703-TC; 85025-TC

== ENCOUNTER 2019-01-26 15:36 | Emergency (ER) | payer MEDICAID ==
[~2019-01-26] VITALS: Ht 154.9 cm; Wt 88.0 kg
--- NOTE | 2019-01-26 16:00 | NUR ---
EPIGASTRIC PAIN, NAUSEA AND BLOATING X 5 DAYS. PATIENT A/OX4, BREATHING EVEN AND UNLABORED, NO SOB NOTED, NEEDS ATTENDED, ATTACHED TOT HE COMBINATION WELDER APPRENTICE.
[2019-01-26] MEDS ORDERED: IV NS 0.9% 1,000 ML BAG IV ONE (16:30)
[2019-01-26] MEDS ORDERED: MAG HYDROX/AL HYDROX/SIMETH 30 ML UDC PO ONE (16:30)
[2019-01-26] MEDS ORDERED: FAMOTIDINE/PF INJ 20 MG/2 ML VIAL IV ONE ×2 (16:30→16:47)
[2019-01-26] MEDS ORDERED: ONDANSETRON HCL/PF 4 MG/2 ML VIAL IVP ONE (16:30)
[2019-01-26 16:46] LABS: BASOPHILS # (AUTO) 0.1 /CMM (0.0-0.2); BASOPHILS % (AUTO) 0.5 % (0.0-2.0); EOSINOPHILS % (AUTO) 0.3 % (0.0-6.0); HEMATOCRIT 40 % (33-45); HEMOGLOBIN 13.1 g/dL (11.5-14.8); LYMPHOCYTES # (AUTO) 3.4 /CMM (0.8-4.8); LYMPHOCYTES % (AUTO) 28.5 % (20.0-44.0); MEAN CORPUSCULAR HGB CONC 33 g/dl (31.0-36.0); MEAN CORPUSCULAR VOLUME 85 fL (82-100); MONOCYTES # (AUTO) 0.9 /CMM (0.1-1.30); MONOCYTES % (AUTO) 7.4 % (2.0-12.0); NEUTROPHILS # (AUTO) 7.4 /CMM (1.8-8.9); NEUTROPHILS % (AUTO) 63.3 % (43.0-81.0); PLATELET COUNT (AUTO) 364 /CMM (150-450); RED BLOOD CELL COUNT(AUTO) 4.72 MIL/uL (4.0-5.2); WHITE BLOOD COUNT (AUTO) 11.8 K/uL (4.3-11.0)
[2019-01-26] MEDS ORDERED: ONDANSETRON HCL/PF 4 MG/2 ML VIAL ONE (16:47)
[2019-01-26] MEDS ORDERED: MAG HYDROX/AL HYDROX/SIMETH 30 ML UDC ONE (16:47)
[2019-01-26 16:58] LABS: CALCIUM, SERUM 9.2 mg/dL (8.5-10.1); CREATININE 0.8 mg/dL (0.6-1.3); POTASSIUM 3.6 mmol/L (3.5-5.1)
[2019-01-26 17:11] LABS: ALBUMIN 3.4 g/dL (3.4-5.0); BILIRUBIN,DIRECT 0.1 mg/dL (0.0-0.2); BILIRUBIN,TOTAL 0.2 mg/dL (0.2-1.0); TOTAL PROTEIN, SERUM 8.6 g/dL (6.4-8.2)
[2019-01-26] MEDS ORDERED: KETOROLAC TROMETHAMINE INJ 30 MG/ML VIAL ONE (17:27)
[2019-01-26] MEDS ORDERED: KETOROLAC TROMETHAMINE INJ 60 MG/2 ML VIAL IM ONE (17:30)
[2019-01-26 18:34] VITALS: BP 137/90
== END 2019-01-26 18:35 | disposition home or self-care (01) ==
LOC: ER 15:36
DX: R10.13 Epigastric pain (principal); K76.0 Fatty (change of) liver, not elsewhere classified; I10 Essential (primary) hypertension; K21.9 Gastro-esophageal reflux disease without esophagitis; E11.9 Type 2 diabetes mellitus without complications; E03.9 Hypothyroidism, unspecified; E78.00 Pure hypercholesterolemia, unspecified; Z79.899 Other long term (current) drug therapy; Z79.84 Long term (current) use of oral hypoglycemic drugs
CPT/HCPCS: 36415; 80048; 80076; 83690; 85025; 96374; 96375; 99283; J1885; J2405; J3490; J7030

== ENCOUNTER 2019-05-28 13:48 | Emergency (ER) | payer MEDICAID ==
[~2019-05-28] VITALS: Ht 144.8 cm; Wt 87.1 kg
--- NOTE | 2019-05-28 13:52 | NUR ---
PT SELF PRESENTS TO ED, AMBULATORY TO ER BED 03 C/O GENERALIZED BODY PARESTHESIA X 3 DAYS NOW. PT DENIES CHEST PAIN OR SOB. STABLE VITALS. AWAITING MD MO.
--- NOTE | 2019-05-28 14:36 | NUR ---
DR RODRIGUEZ AT BEDSIDE FOR EVAL.
[2019-05-28 14:43] LABS: BASOPHILS # (AUTO) 0.1 /CMM (0.0-0.2); BASOPHILS % (AUTO) 0.7 % (0.0-2.0); EOSINOPHILS % (AUTO) 0.5 % (0.0-6.0); HEMATOCRIT 38 % (33-45); HEMOGLOBIN 12.6 g/dL (11.5-14.8); LYMPHOCYTES # (AUTO) 3.1 /CMM (0.8-4.8); MEAN CORPUSCULAR HGB CONC 33 g/dl (31.0-36.0); MEAN CORPUSCULAR VOLUME 85 fL (82-100); MONOCYTES # (AUTO) 0.6 /CMM (0.1-1.30); MONOCYTES % (AUTO) 7.2 % (2.0-12.0); NEUTROPHILS # (AUTO) 4.8 /CMM (1.8-8.9); NEUTROPHILS % (AUTO) 55.6 % (43.0-81.0); PLATELET COUNT (AUTO) 334 /CMM (150-450); WHITE BLOOD COUNT (AUTO) 8.7 K/uL (4.3-11.0)
[2019-05-28 14:53] LABS: CALCIUM, SERUM 9.1 mg/dL (8.5-10.1); CREATININE 0.7 mg/dL (0.6-1.3); POTASSIUM 3.6 mmol/L (3.5-5.1)
[2019-05-28 14:59] LABS: ALBUMIN 3.4 g/dL (3.4-5.0); BILIRUBIN,TOTAL 0.2 mg/dL (0.2-1.0); TOTAL PROTEIN, SERUM 7.6 g/dL (6.4-8.2)
[2019-05-28 15:37] VITALS: BP 123/82
--- NOTE | 2019-05-28 15:37 | NUR ---
Patient discharged to home in stable condition. Written and verbal after care instructions given. Patient verbalizes understanding of instruction.
[2019-05-29] MEDS ORDERED: KETOROLAC TROMETHAMINE 15 MG/ML VIAL ONE (18:28)
== END 2019-05-28 15:38 | disposition home or self-care (01) ==
LOC: ER 13:49
DX: R20.2 Paresthesia of skin (principal); R42 Dizziness and giddiness; I45.10 Unspecified right bundle-branch block; I10 Essential (primary) hypertension; E11.9 Type 2 diabetes mellitus without complications; E78.00 Pure hypercholesterolemia, unspecified; E03.9 Hypothyroidism, unspecified; K21.9 Gastro-esophageal reflux disease without esophagitis; Z79.899 Other long term (current) drug therapy
CPT/HCPCS: 36415; 80048-TC; 80076-TC; 85025-TC; J1885

== ENCOUNTER 2020-06-01 10:36 | Emergency (ER) | payer MEDICAID ==
[~2020-06-01] VITALS: Ht 165.1 cm; Wt 88.9 kg
--- NOTE | 2020-06-01 10:36 | NUR ---
BIB SELF C/O LEFT LOWER ABDOMINAL PAIN FOR 2 WEAKS AND BACK PAIN, TO ER BED 9, HOOKED TO MONITOR, CHANGED TO HOSP GOWN, WARM BLANKET PROVIDED, PATIENT AAO x 4. NAD NOTED, DR LAWRENCE AT BEDSIDE
--- NOTE | 2020-06-01 10:53 | NUR ---
AT BEDSIDE FOR EVAL.
[2020-06-01 11:04] LABS: BASOPHILS # (AUTO) 0.1 /CMM (0.0-0.2); BASOPHILS % (AUTO) 0.6 % (0.0-2.0); EOSINOPHILS % (AUTO) 0.5 % (0.0-6.0); HEMATOCRIT 31 % (33-45); LYMPHOCYTES # (AUTO) 2.6 /CMM (0.8-4.8); LYMPHOCYTES % (AUTO) 25.3 % (20.0-44.0); MEAN CORPUSCULAR HGB CONC 33 g/dl (31.0-36.0); MEAN CORPUSCULAR VOLUME 76 fL (82-100); MONOCYTES # (AUTO) 0.8 /CMM (0.1-1.30); MONOCYTES % (AUTO) 8.1 % (2.0-12.0); NEUTROPHILS # (AUTO) 6.7 /CMM (1.8-8.9); NEUTROPHILS % (AUTO) 65.5 % (43.0-81.0); PLATELET COUNT (AUTO) 434 /CMM (150-450); RED BLOOD CELL COUNT(AUTO) 4.05 MIL/uL (4.0-5.2); WHITE BLOOD COUNT (AUTO) 10.1 K/uL (4.3-11.0)
[2020-06-01 11:16] LABS: CALCIUM, SERUM 8.8 mg/dL (8.5-10.1); CARBON DIOXIDE 26 mmol/L (21-32); CHLORIDE 102 mmol/L (98-107); CREATININE 0.7 mg/dL (0.6-1.3); GLUCOSE 107 mg/dL (74-106); POTASSIUM 3.6 mmol/L (3.5-5.1); SODIUM SERUM 139 mmol/L (136-145); UREA NITROGEN, BLOOD 16 mg/dL (7-18)
[2020-06-01 11:22] LABS: ALANINE AMINOTRANSFERASE 24 U/L (12-78); ALBUMIN 3.3 g/dL (3.4-5.0); ALKALINE PHOSPHATASE 79 U/L (46-116); ASPARTATE AMINOTRANSFERASE 11 U/L (15-37); BILIRUBIN,DIRECT 0.1 mg/dL (0.0-0.2); BILIRUBIN,TOTAL 0.3 mg/dL (0.2-1.0); LIPASE 181 U/L (73-393); TOTAL PROTEIN, SERUM 7.3 g/dL (6.4-8.2)
--- NOTE | 2020-06-01 11:23 | NUR ---
URINE SAMPLE COLLECTED AND SENT TO LAB
[2020-06-01 11:47] LABS: BILIRUBIN,URINE Negative (NEGATIVE); COLOR,URINE YELLOW (YELLOW); LEUKOCYTE ESTERASE ,URINE Trace (NEGATIVE); NITRITE, URINE Negative (NEGATIVE); PH,URINE 7.5 (5.0-8.0); PROTEIN,URINE Negative (NEGATIVE); UGLUCOSE Negative (NEGATIVE); UROBILINOGEN,URINE 0.2 EU/dL (0.2)
[2020-06-01 11:52] LABS: BACTERIA,URINE Few /HPF (None Seen)
[2020-06-01 11:53] LABS: URINE AMORPHOUS PHOSPHATES Moderate /HPF (None Seen)
[2020-06-01] MEDS ORDERED: CEPH500C2 PO (12:42)
[2020-06-01 13:01] VITALS: BP 129/72
[2020-06-01] MEDS: ACETAMINOPHEN ES 500 MG TABLET PO ONE (13:04)
--- NOTE | 2020-06-01 13:04 | NUR ---
Patient discharged to home in stable condition. Written and verbal after care instructions given. Patient verbalizes understanding of instruction.
== END 2020-06-01 13:07 | disposition home or self-care (01) ==
LOC: ER 10:39
DX: N39.0 Urinary tract infection, site not specified (principal); I10 Essential (primary) hypertension; K21.9 Gastro-esophageal reflux disease without esophagitis; E78.5 Hyperlipidemia, unspecified; E11.9 Type 2 diabetes mellitus without complications; E03.9 Hypothyroidism, unspecified; Z79.84 Long term (current) use of oral hypoglycemic drugs; Z79.899 Other long term (current) drug therapy
CPT/HCPCS: 36415; 71045-TC; 80048-TC; 80076-TC; 81001; 83690-TC; 84484-TC; 84703-TC; 85025-TC; 87086-TC

== ENCOUNTER 2022-03-17 12:26 | Emergency (ER) | payer MEDICAID ==
[~2022-03-17] VITALS: Ht 154.9 cm; Wt 86.6 kg
[~2022-03-17 12:26] MED LIST changes: +CEPH500C2 PO
--- NOTE | 2022-03-17 12:45 | NUR ---
PT SEEN BY FOR EVALIN
[2022-03-17 13:03] LABS: BASOPHILS % (AUTO) 0.4 % (0.0-2.0); HEMATOCRIT 37 % (33-45); LYMPHOCYTES # (AUTO) 2.4 K/uL (0.8-4.8); LYMPHOCYTES % (AUTO) 26.8 % (20.0-44.0); MEAN CORPUSCULAR HGB CONC 33 g/dl (31.0-36.0); MEAN CORPUSCULAR VOLUME 83 fL (82-100); MONOCYTES # (AUTO) 0.7 K/uL (0.1-1.30); MONOCYTES % (AUTO) 7.4 % (2.0-12.0); NEUTROPHILS # (AUTO) 5.8 K/uL (1.8-8.9); NEUTROPHILS % (AUTO) 64.4 % (43.0-81.0); PLATELET COUNT (AUTO) 369 K/uL (150-450); RED BLOOD CELL COUNT(AUTO) 4.45 MIL/uL (4.0-5.2)
[2022-03-17 13:11] LABS: CALCIUM, SERUM 8.6 mg/dL (8.5-10.1); CREATININE 0.7 mg/dL (0.6-1.3); POTASSIUM 3.3 mmol/L (3.5-5.1)
[2022-03-17 13:23] LABS: ALBUMIN 3.8 g/dL (3.4-5.0); BILIRUBIN,DIRECT 0.1 mg/dL (0.0-0.2); BILIRUBIN,TOTAL 0.3 mg/dL (0.2-1.0); TOTAL PROTEIN, SERUM 7.4 g/dL (6.4-8.2)
[2022-03-17] MEDS ORDERED: KETOROLAC TROMETHAMINE INJ 30 MG/ML VIAL IV ONE (13:30)
[2022-03-17] MEDS ORDERED: IV NS 0.9% 1,000 ML IV ONE (13:30)
[2022-03-17] MEDS ORDERED: KETOROLAC TROMETHAMINE 15 MG/ML VIAL ONE (13:32)
[2022-03-17 14:13] LABS: BILIRUBIN,URINE NEGATIVE (NEGATIVE); COLOR,URINE DARK YELLOW (YELLOW); LEUKOCYTE ESTERASE ,URINE NEGATIVE (NEGATIVE); NITRITE, URINE NEGATIVE (NEGATIVE); PH,URINE 5.5 (5.0-8.0); PROTEIN,URINE 2+ mg/dl (NEGATIVE); UGLUCOSE 3+ mg/dL (NEGATIVE); UROBILINOGEN,URINE 0.2 EU/dL (0.2)
[2022-03-17 14:23] LABS: BACTERIA,URINE Rare /HPF (None Seen); SQUAMOUS EPITHELIAL CELL,UR Few /HPF (None Seen)
[2022-03-17] MEDS ORDERED: NITR100C6 PO (14:29)
--- NOTE | 2022-03-17 15:00 | NUR ---
IV removed. Catheter intact and site benign. Pressure and 4x4 applied to site. No bleeding noted.
[2022-03-17 15:11] VITALS: BP 136/80
== END 2022-03-17 15:12 | disposition home or self-care (01) ==
LOC: ER 12:26
DX: N93.9 Abnormal uterine and vaginal bleeding, unspecified (principal); N39.0 Urinary tract infection, site not specified; I10 Essential (primary) hypertension; E11.9 Type 2 diabetes mellitus without complications; E78.00 Pure hypercholesterolemia, unspecified; Z79.84 Long term (current) use of oral hypoglycemic drugs
CPT/HCPCS: 99283; 96374; 96361; 85025; 80048; 80076; 81001; 36415; 84702; J7030; J1885

== ENCOUNTER 2023-05-16 19:12 | Emergency (ER) | payer MEDICAID, OTHER ==
[~2023-05-16] VITALS: Ht 149.9 cm; Wt 68.0 kg
[~2023-05-16 19:12] MED LIST changes: +NITR100C6 PO
[2023-05-16 21:05] VITALS: TEMP 98.4
[2023-05-16] MEDS: ONDANSETRON HCL/PF 4 MG/2 ML VIAL IVP ONE (21:30)
[2023-05-16] MEDS: IV NS 0.9% 1,000 ML BAG IV ONE (21:30)
[2023-05-16] MEDS: MORPHINE SULFATE INJ 2 MG/ML DISP.SYRIN IV ONE (21:30)
[2023-05-16 21:56] LABS: BASOPHILS % (AUTO) 0.2 % (0.0-2.0); HEMATOCRIT 36 % (33-45); HEMOGLOBIN 11.7 g/dL (11.5-14.8); LYMPHOCYTES # (AUTO) 1.5 K/uL (0.8-4.8); LYMPHOCYTES % (AUTO) 18.2 % (20.0-44.0); MEAN CORPUSCULAR HEMOGLOBIN 27 PG (26.0-33.0); MEAN CORPUSCULAR HGB CONC 33 g/dl (31.0-36.0); MEAN CORPUSCULAR VOLUME 82 fL (82-100); MONOCYTES # (AUTO) 0.2 K/uL (0.1-1.30); MONOCYTES % (AUTO) 1.9 % (2.0-12.0); NEUTROPHILS # (AUTO) 6.4 K/uL (1.8-8.9); NEUTROPHILS % (AUTO) 79.7 % (43.0-81.0); PLATELET COUNT (AUTO) 374 K/uL (150-450); RED BLOOD CELL COUNT(AUTO) 4.35 MIL/uL (4.0-5.2); RED CELL DISTRIBUTION WIDTH 14.6 % (11.5-15.0)
[2023-05-16 22:09] LABS: CALCIUM, SERUM 9.3 mg/dL (8.5-10.1); CREATININE 0.5 mg/dL (0.6-1.3); POTASSIUM 3.7 mmol/L (3.5-5.1)
[2023-05-16 22:11] LABS: ALBUMIN 3.9 g/dL (3.4-5.0); BILIRUBIN,DIRECT 0.1 mg/dL (0.0-0.2); BILIRUBIN,TOTAL 0.3 mg/dL (0.2-1.0)
[2023-05-16 22:13] LABS: APPEARANCE,URINE CLEAR (CLEAR); BILIRUBIN,URINE NEGATIVE (NEGATIVE); BLOOD, URINE NEGATIVE Ery/uL (NEGATIVE); COLOR,URINE YELLOW (YELLOW); KETONES,URINE 1+ mg/dL (NEGATIVE); LEUKOCYTE ESTERASE ,URINE NEGATIVE (NEGATIVE); NITRITE, URINE NEGATIVE (NEGATIVE); PH,URINE 5.5 (5.0-8.0); PROTEIN,URINE NEGATIVE (NEGATIVE); UGLUCOSE 3+ mg/dL (NEGATIVE); UROBILINOGEN,URINE 0.2 EU/dL (0.2)
[2023-05-16 22:16] LABS: PREGNANCY TEST URINE QUAL NEGATIVE (NEGATIVE)
[2023-05-16 22:21] LABS: ADD URINE CULTURE NO; BACTERIA,URINE None seen /HPF (None Seen); RBC,URINE 0-2 /HPF (0-2); WBC,URINE 0-2 /HPF (0-3)
[2023-05-16] MEDS ORDERED: MORPHINE SULFATE INJ 4 MG/ML DISP.SYRIN ONE (22:32)
[2023-05-16] MEDS ORDERED: ONDANSETRON HCL/PF 4 MG/2 ML VIAL ONE (22:32)
[2023-05-17 04:05] VITALS: BP 122/81; O2SAT 98
== END 2023-05-17 04:07 | disposition home or self-care (01) ==
LOC: ER 19:29
DX: R10.32 Left lower quadrant pain (principal); I10 Essential (primary) hypertension; E78.00 Pure hypercholesterolemia, unspecified; E11.9 Type 2 diabetes mellitus without complications; E03.9 Hypothyroidism, unspecified; K21.9 Gastro-esophageal reflux disease without esophagitis; Z79.84 Long term (current) use of oral hypoglycemic drugs; Z79.899 Other long term (current) drug therapy
CPT/HCPCS: 99285; 74176; 96374; 96361; 96375; 85025; 80048; 83690; 80076; 84703; 81001; 36415; J2270; J2405; J7030